=== PATIENT | male | born 1935 | race Caucasian/White ===

== ENCOUNTER → 2018-09-05 09:13 | Outpatient (BNVA) | payer MEDICARE, SELFPAY | PROVIDERS: PCP Family Medicine; Visit Provider Student in an Organized Health Care Education/Training Program | DX: I25.10 Atherosclerotic heart disease of native coronary artery without angina pectoris (principal); Z98.61 Coronary angioplasty status; I73.9 Peripheral vascular disease, unspecified; I10 Essential (primary) hypertension; I35.0 Nonrheumatic aortic (valve) stenosis; I63.9 Cerebral infarction, unspecified; E78.00 Pure hypercholesterolemia, unspecified; E11.9 Type 2 diabetes mellitus without complications | CPT/HCPCS: 99214 ==

== ENCOUNTER 2020-08-20 17:11 | Emergency (ER) | payer MEDICARE, SELFPAY ==
[2020-08-20 17:20] VITALS: BP 149/77; PULSE 56; RESP 16; TEMP 36.9; O2SAT 95
[2020-08-20] MEDS: predniSONE 20 MG TAB 60 MG PO (17:40)
--- NOTE | 2020-08-20 17:45 | ED.GENADUL_ITS ---
Discharge Plan Disposition Patient Disposition: HOME Condition: Stable Discharge Details Clinical Impression: Swelling of upper lip Primary Care Provider: Naresh Spears ED Provider: Damon Villanueva Home Meds and New Rx's Prescriptions: New prednisone 20 mg tablet 60 mg PO DAILY 4 Days Qty: 12 RF: 0 Continued latanoprost 0.005 % drops 1 drp OP BID RF: 0 rosuvastatin 40 mg tablet 40 mg PO DAILY Qty: 90 RF: 3 Metoprolol Succinate 50 MG TAB.ER.24H 50 mg PO DAILY Qty: 90 RF: 3 aspirin [Aspir-81] 81 MG tablet,delayed release (DR/EC) 81 mg PO DAILY RF: 0 hydrochlorothiazide 25 MG tablet 25 mg PO DAILY RF: 0 Discontinued lisinopril 10 mg tablet 10 mg PO DAILY Qty: 30 RF: 11 Discharge Instructions Instructions: Angioedema (ED) Additional Instructions: Your lip swelling is likely from the lisinopril. Stop taking this and follow up with your primary care office as soon as possible to discuss starting a new blood pressure medicine if you feel more ill, have difficulty breathing or swallowing return to the emergency department Medical Decision Making 84 yo male with hx of htn on lisinopril for years comes in with upper lip swelling. He states it started this morning and has been the same size since. He denies trouble swallowing or breathing. No no new foods or meds. He has no rashes elsewhere or swelling. His tongue is not swollen and has normal uvula speaking in full sentences. His left upper lip is swollen, lower lip is normal. Suspect angioedema from his lisinopril. Will give prednisone and observe. pt stable and unchanged swelling, no dyspnea speaking in full sentences and swallowing normally and is requesting d/c. Will have him stop lisinopril and see pcp for new BP med. Return precautions given Differential Diagnosis Differential Diagnosis: angioedema, allergic reaction HPI General Mode of arrival: ambulatory . Date/Time Provider Initiated Documentation: 08/20/20 17:24 . Limitations to Documentation: no limitations . Information obtained by: patient . History of Present Illness 84 year old M presents to the emergency department with the chief complaint of upper lip swelling, described as moderate, and is localized to the mouth. Patient reports no radiation. Patient started experiencing this hour(s) (8) and it has been constant. No relieving factors improve symptom(s), No exacerbating factors reported . Patient notes no other symptoms.. Patient did receive the following treatments prior to arrival, none Related Data Home Medications Medication Instructions Recorded Confirmed aspirin [Aspir-81] 81 mg PO DAILY 09/22/16 08/20/20 hydrochlorothiazide 25 mg PO DAILY 09/22/16 08/20/20 latanoprost 0.005 % eye drops 1 drp OP BID ml 09/05/18 08/20/20 rosuvastatin 40 mg tablet 40 mg PO DAILY #90 tab 09/05/18 08/20/20 prednisone 60 mg PO DAILY 4 Days #12 tab 08/20/20 Previous Rx's Medication Instructions Recorded rosuvastatin 40 mg tablet 40 mg PO DAILY #90 tab 09/05/18 prednisone 60 mg PO DAILY 4 Days #12 tab 08/20/20 Allergies Allergy/AdvReac Type Severity Reaction Status Date / Time No Known Allergies Allergy Unverified 08/20/20 17:22 General Stated Complaint: Allergic FIDELINA: 4 Review of Systems All systems reviewed & are unremarkable except as noted in HPI and below Constitutional Constitutional: Denies chills, Denies fever(s) and Denies weakness ENT Ears, Nose, Mouth, and Throat: Denies change in voice Cardiovascular Cardiovascular: Denies chest pain and Denies dyspnea Respiratory Respiratory: Denies cough and Denies dyspnea Gastrointestinal Gastrointestinal: Denies abdominal pain, Denies nausea and Denies vomiting Musculoskeletal Musculoskeletal: Denies joint swelling Neurologic Neurologic: Denies weakness Psychiatric Psychiatric: Denies depression PFSH Social History Smoking/Tobacco Use Status: Former Tobacco Use Smoking risk assessment performed?: Yes Drug use: Never Do you feel safe at home: Yes Do you feel safe in your relationship?: Yes Exam Const General: no acute distress Orientation: alert [facility] Head: normal to inspection Ears: external ears normal General nose exam: external nose normal Mouth: tongue normal and moist mucous membranes Eyes General: appearance normal, both eyes and all related structures Neck Neck: normal visual inspection Resp Effort & Inspection: normal respiratory effort and able to speak in complete sentences Cardio Rate: regular rate Skin General skin exam: no rashes or lesions noted Neuro General: patient alert and patient oriented x3 Extrem General: normal to inspection Psych Mental Status: mental status grossly normal Course Vital Signs Vital signs: Vital Signs Temperature 36.9 C 08/20/20 17:20 Pulse 56 L 08/20/20 17:20 Respiratory Rate 16 08/20/20 17:20 Blood Pressure 149/77 H 08/20/20 17:20 Pulse Oximetry 95 08/20/20 17:20 Temperature 36.9 C 08/20/20 17:20 Temperature Source Temporal Artery Scan 08/20/20 17:20 Pulse 56 L 08/20/20 17:20 Respiratory Rate 16 08/20/20 17:20 Respiratory Effort 08/20/20 17:22 Blood Pressure 149/77 H 08/20/20 17:20 Pulse Oximetry 95 08/20/20 17:20 Oxygen Delivery Method Room Air 08/20/20 17:20 Oxygen Flow Rate 0 08/20/20 17:20 Pain Level 0 08/20/20 17:20
[2020-08-20 18:22] VITALS: BP 166/60; PULSE 56; RESP 16; TEMP 37.1; O2SAT 97
== END 2020-08-20 18:33 | disposition home or self-care (01) ==
PROVIDERS: Emergency Provider Emergency Medicine; PCP Family Medicine
DX: R22.0 Localized swelling, mass and lump, head (principal)
CPT/HCPCS: 99283; J7512